=== PATIENT | female | born 1990 | race Caucasian/White ===

== ENCOUNTER 2019-06-12 11:07 | Emergency (ER) | payer OTHER ==
[2019-06-12 11:30] VITALS: RESP 18
[2019-06-12] MEDS ORDERED: IBUPROFEN 600 MG TAB PO STA (11:40)
[2019-06-12 12:02] LABS: Appearance,Urine Turbid (Clear); Bacteria,Urine Few /hpf; Bilirubin,Urine Negative (Negative); Blood,Urine Small (Negative); Color,Urine Yellow; Glucose,Urine (UA) Negative (Negative); Ketones,Urine 3+ (Negative); Leukocyte Esterase,Urine Large (Negative); Mucus,Urine Occasional /hpf; Nitrite,Urine Positive (Negative); PH, Urine 5.5 (5.0-8.0); Protein,Urine 1+ (Negative); RBC,Urine 12 /hpf (0-5); Specific Gravity,Urine 1.013 (1.001-1.035); Squamous Epithelial Cell,Urine 7 /hpf (0-4); Urobilinogen,Urine <2.0 mg/dL (<2.0)
[2019-06-12] MEDS: SODIUM CHLORIDE 0.9% 500 ML 500 ML IV SCH ×2 (12:06→13:57)
[2019-06-12] MEDS ORDERED: ACETAMINOPHEN TAB 325 MG TAB PO STA (12:06)
[2019-06-12 12:48] LABS: ALT 22 U/L (9-52); AST 17 U/L (14-36); African American GFR (CKD) >90 (>60 ml/min/1.73 sqM); Albumin 3.8 g/dL (3.5-5.0); Alkaline Phosphatase 53 U/L (38-126); Anion Gap 11 mmol/L; Blood Urea Nitrogen 4 mg/dL (7-17); Calcium 9.1 mg/dL (8.4-10.2); Carbon Dioxide 22 mmol/L (22-30); Chloride 104 mmol/L (98-107); Glucose 108 mg/dL (74-99); Potassium 3.4 mmol/L (3.5-5.1); Sodium 137 mmol/L (137-145); Total Protein 6.5 g/dL (6.3-8.2)
[2019-06-12 12:49] LABS: Basophils % (A) 0 %; Eosinophils % (A) 0 %; HCT 30.7 % (34.0-46.0); Hypochromasia Slight; INR 0.9 (<1.2); Lymphocytes # (A) 0.6 k/uL (1.0-4.8); Lymphocytes % (A) 5 %; MCH 25.7 pg (25.0-35.0); MCHC 32.5 g/dL (31.0-37.0); MCV 79.2 fL (80.0-100.0); Mean Platelet Volume 6.2; Monocytes # (A) 1.1 k/uL (0-1.0); Monocytes % (A) 9 %; Neutrophils # (A) 10.2 k/uL (1.3-7.7); Neutrophils % (A) 84 %; Partial Thromboplastin Time 27.1 sec (22.0-30.0); Platelet Count 234 k/uL (150-450); Prothrombin Time 9.8 sec (9.0-12.0); RBC 3.88 m/uL (3.80-5.40); RDW 14.4 % (11.5-15.5); WBC 12.1 k/uL (3.8-10.6)
--- NOTE | 2019-06-12 13:14 | ED ---
Abdominal Pain HPI - General Chief Complaint: Abdominal Pain Stated Complaint: abdominal & back pain Time Seen by Provider: 06/12/19 11:30 Source: patient Mode of arrival: ambulatory Limitations: no limitations - History of Present Illness Initial Comments: The patient is a 28-year-old female with no past medical history of present to the emergency room with reported abdominal pain. States the symptoms started 4 days ago. It was first located in her left lower quadrant. States that it is now generalized to include her abdomen as well as her low back. She has been taking Motrin over the past couple of days for her pain without improvement. She denies any dysuria, hematuria or difficulty voiding. Denies any abnormal vaginal bleeding or discharge. No concern for sexually transmitted infections or . Denies unprotected intercourse. Denies any changes in her bowel habits to include diarrhea, constipation, melanotic stools or hematochezia. No history of similar in the past. She has not taken any additional medications for her symptoms. Denies fevers or chills. Does report to nausea and states she's had a poor appetite over the past several days. Denies any headaches or visual changes. No cough or chest pain. No history of IV drug use. There are no other alleviating, precipitating or modifying factors - Related Data Previous Rx's Medication Instructions Recorded Cephalexin [Keflex] 500 mg PO Q6HR #40 cap 06/12/19 Ondansetron Odt [Zofran Odt] 4 mg PO Q8HR PRN #15 tab 06/12/19 Allergies Allergy/AdvReac Type Severity Reaction Status Date / Time No Known Allergies Allergy Verified 04/29/15 04:33 Review of Systems ROS Statement: Those systems with pertinent positive or pertinent negative responses have been documented in the HPI. ROS Other: All systems not noted in ROS Statement are negative. Past Medical History Past Medical History: No Reported History History of Any Multi-Drug Resistant Organisms: None Reported Past Surgical History: Tubal Ligation Past Anesthesia/Blood Transfusion Reactions: No Reported Reaction Past Psychological History: No Psychological Hx Reported Smoking Status: Current every day smoker Past Alcohol Use History: Occasional Past Drug Use History: None Reported - Past Family History Mother Family Medical History: No Reported History General Exam Limitations: no limitations General appearance: alert, in no apparent distress Head exam: Present: atraumatic, normocephalic, normal inspection Eye exam: Present: normal appearance, PERRL, EOMI. Absent: scleral icterus, conjunctival injection, periorbital swelling ENT exam: Present: normal exam, mucous membranes moist Neck exam: Present: normal inspection. Absent: tenderness, meningismus, lymphadenopathy Respiratory exam: Present: normal lung sounds bilaterally. Absent: respiratory distress, wheezes, rales, rhonchi, stridor Cardiovascular Exam: Present: normal rhythm, tachycardia, normal heart sounds. Absent: systolic murmur, diastolic murmur, rubs, gallop, clicks GI/Abdominal exam: Present: soft, tenderness (suprapubically), normal bowel sounds. Absent: distended, guarding, rebound, rigid Extremities exam: Present: normal inspection, full ROM, normal capillary refill. Absent: tenderness, pedal edema, joint swelling, calf tenderness Back exam: Present: normal inspection Neurological exam: Present: alert, oriented X3, CN II-XII intact Psychiatric exam: Present: normal affect, normal mood Skin exam: Present: warm, dry, intact, normal color. Absent: rash Course Vital Signs 06/12/19 06/12/19 06/12/19 11:27 13:24 14:41 Temperature 102.5 F H 99.3 F 99.2 F Pulse Rate 147 H 106 H 94 Respiratory 18 18 18 Rate Blood Pressure 138/73 110/63 102/55 O2 Sat by Pulse 98 99 100 Oximetry Medical Decision Making - Medical Decision Making Upon arrival the patient was placed into room 26. A thorough history and physical exam was performed. Vitals are obtained and the patient does have 102.5 fever. She also has a heart rate of 147. As of this I did insert a peripheral IV. I gave her 2 L bolus of normal saline. She has not taken any Motrin today and therefore did provide her with 600 mg. I recommended laboratory studies and a urinalysis. I also recommended a CT of the patient's abdomen and pelvis. Laboratory studies demonstrated white blood cell count of 12.1. Hemoglobin is stable at 10. Potassium 3.4. Urinalysis shows small blood, positive nitrates, large leukocyte esterase, 12 red blood cells, greater than 182 white blood cells, many white blood cell clumps, few bacteria, occasi onal mucous. Abdomen and pelvis CT demonstrates triangular area of decreased function within right kidney upper pole which is difficult to exclude pyelonephritis. Mild hypervascularity of the uterus may reflect pelvic congestion syndrome. Follicle on the left. Failure to visualize the appendix. Because of the results I did provide the patient with a gram of Rocephin. I reevaluated her and her heart rate has greatly improved to 94. I discussed diagnosis, differential and treatment options. I did recommend hospital admission because the patient's sepsis criteria. The patient refused stating that she felt much better at this time and wanted her treated on an outpatient basis. She will be given a prescription for Keflex and Zofran. She is to follow-up with her primary care physician in the next 2-4 days for reevaluation. The patient has any new or worsening symptoms she should return to the emergency room. The patient was in agreement with the treatment plan. Father is at bedside and agreed. The patient was then discharged home in stable condition - Lab Data Result diagrams: 06/12/19 12:05 06/12/19 12:05 Lab Results 06/12/19 06/12/19 06/12/19 Range/Units 11:45 11:45 12:05 WBC 12.1 H (3.8-10.6) k/uL RBC 3.88 (3.80-5.40) m/uL Hgb 10.0 L (11.4-16.0) gm/dL Hct 30.7 L (34.0-46.0) % MCV 79.2 L (80.0-100.0) fL MCH 25.7 (25.0-35.0) pg MCHC 32.5 (31.0-37.0) g/dL RDW 14.4 (11.5-15.5) % Plt Count 234 (150-450) k/uL Neutrophils % 84 % Lymphocytes % 5 % Monocytes % 9 % Eosinophils % 0 % Basophils % 0 % Neutrophils # 10.2 H (1.3-7.7) k/uL Lymphocytes # 0.6 L (1.0-4.8) k/uL Monocytes # 1.1 H (0-1.0) k/uL Eosinophils # 0.0 (0-0.7) k/uL Basophils # 0.0 (0-0.2) k/uL Hypochromasia Slight PT (9.0-12.0) sec INR (<1.2) APTT (22.0-30.0) sec Sodium (137-145) mmol/L Potassium (3.5-5.1) mmol/L Chloride (98-107) mmol/L Carbon Dioxide (22-30) mmol/L Anion Gap mmol/L BUN (7-17) mg/dL Creatinine (0.52-1.04) mg/dL Est GFR (CKD-EPI)AfAm (>60 ml/min/1.73 sqM) Est GFR (CKD-EPI)NonAf (>60 ml/min/1.73 sqM) Glucose (74-99) mg/dL Plasma Lactic Acid Ji (0.7-2.0) mmol/L Calcium (8.4-10.2) mg/dL Total Bilirubin (0.2-1.3) mg/dL AST (14-36) U/L ALT (9-52) U/L Alkaline Phosphatase (38-126) U/L Total Protein (6.3-8.2) g/dL Albumin (3.5-5.0) g/dL Urine Color Yellow Urine Appearance Turbid H (Clear) Urine pH 5.5 (5.0-8.0) Ur Specific [employer] 1.013 (1.001-1.035) Urine Protein 1+ H (Negative) Urine Glucose (UA) Negative (Negative) Urine Ketones 3+ H (Negative) Urine Blood Small H (Negative) Urine Nitrite Positive H (Negative) Urine Bilirubin Negative (Negative) Urine Urobilinogen <2.0 (<2.0) mg/dL Ur Leukocyte Esterase Large H (Negative) Urine RBC 12 H (0-5) /hpf Urine WBC >182 H (0-5) /hpf Urine WBC Clumps Many H (None) /hpf Ur Squamous Epith Cells 7 H (0-4) /hpf Urine Bacteria Few H (None) /hpf Urine Mucus Occasional H (None) /hpf Urine HCG, Qual Not Detected (Not Detectd) 06/12/19 06/12/19 06/12/19 Range/Units 12:05 12:05 12:05 WBC (3.8-10.6) k/uL RBC (3.80-5.40) m/uL Hgb (11.4-16.0) gm/dL Hct (34.0-46.0) % MCV (80.0-100.0) fL MCH (25.0-35.0) pg MCHC (31.0-37.0) g/dL RDW (11.5-15.5) % Plt Count (150-450) k/uL Neutrophils % % Lymphocytes % % Monocytes % % Eosinophils % % Basophils % % Neutrophils # (1.3-7.7) k/uL Lymphocytes # (1.0-4.8) k/uL Monocytes # (0-1.0) k/uL Eosinophils # (0-0.7) k/uL Basophils # (0-0.2) k/uL Hypochromasia PT 9.8 (9.0-12.0) sec INR 0.9 (<1.2) APTT 27.1 (22.0-30.0) sec Sodium 137 (137-145) mmol/L Potassium 3.4 L (3.5-5.1) mmol/L Chloride 104 (98-107) mmol/L Carbon Dioxide 22 (22-30) mmol/L Anion Gap 11 mmol/L BUN 4 L (7-17) mg/dL Creatinine 0.75 (0.52-1.04) mg/dL Est GFR (CKD-EPI)AfAm >90 (>60 ml/min/1.73 sqM) Est GFR (CKD-EPI)NonAf >90 (>60 ml/min/1.73 sqM) Glucose 108 H (74-99) mg/dL Plasma Lactic Acid Ji 1.0 (0.7-2.0) mmol/L Calcium 9.1 (8.4-10.2) mg/dL Total Bilirubin 1.0 (0.2-1.3) mg/dL AST 17 (14-36) U/L ALT 22 (9-52) U/L Alkaline Phosphatase 53 (38-126) U/L Total Protein 6.5 (6.3-8.2) g/dL Albumin 3.8 (3.5-5.0) g/dL Urine Color Urine Appearance (Clear) Urine pH (5.0-8.0) Ur Specific [employer] (1.001-1.035) Urine Protein (Negative) Urine Glucose (UA) (Negative) Urine Ketones (Negative) Urine Blood (Negative) Urine Nitrite (Negative) Urine Bilirubin (Negative) Urine Urobilinogen (<2.0) mg/dL Ur Leukocyte Esterase (Negative) Urine RBC (0-5) /hpf Urine WBC (0-5) /hpf Urine WBC Clumps (None) /hpf Ur Squamous Epith Cells (0-4) /hpf Urine Bacteria (None) /hpf Urine Mucus (None) /hpf Urine HCG, Qual (Not Detectd) - EKG Data EKG Comments: EKG demonstrates a sinus tachycardia with a ventricular rate of 118. IA interval is 116. QRS 80. QTC 434. No acute ST segment elevations or depressions concerning for ischemic changes. No signs of Toumu-Zzhwkhxkn-Onxea or Brugada syndrome Disposition Clinical Impression: Pyelonephritis, SIRS (systemic inflammatory response syndrome) Disposition: HOME SELF-CARE Condition: Serious Instructions (If sedation given, give patient instructions): Kidney Infection (ED) Additional Instructions: Please follow up with your primary care doctor in 2-4 days. I did recommend hospital admission. Return to the emergency department for any new or worsening symptoms Prescriptions: Cephalexin [Keflex] 500 mg PO Q6HR #40 cap Ondansetron Odt [Zofran Odt] 4 mg PO Q8HR PRN #15 tab PRN Reason: Nausea Is patient prescribed a controlled substance at d/c from ED?: No Referrals: None,Stated [Primary Care Provider] - 1-2 days Lis Daniel MD [STAFF PHYSICIAN] - 1-2 days Time of Disposition: 14:14
--- NOTE | 2019-06-12 13:17 | CT ---
EXAMINATION TYPE: CT abdomen pelvis w con DATE OF EXAM: 06/12/2019 REFERENCE: NONE HISTORY: abd pain, sepsis HISTORY: Left sided Abdominal and back pain with fever. REFERENCE: NONE CT DLP: 553.3 mGy Automated exposure control for dose reduction was used. TECHNIQUE: Helical acquisition through the abdomen and pelvis was obtained following the oral ingesti on of without Oral Contrast and following intravenous administration of 100 mL of Isovue 300. The vincent a was reformatted in axial, coronal and sagittal projections. FINDINGS: Visualized portions of the lungs are clear. There is no pleural or pericardial fluid. The heart is not enlarged. Within the abdomen, the liver, spleen and gallbladder are normal. Both adrenal glands are normal. The triangular area of decreased function in the upper pole of the right kidney. I would BE unable to exclude pyelonephritis in this area. Limited views of the pancreas are normal. There is no significant retroperitoneal, inguinal or iliac adenopathy. The bladder is normal. The uterus is mildly hypervascular. There appears to been a previous tubal ligation. There is follicu lar change present in both ovaries with a 2.6 cm follicle present on the left. The bowel is difficult to follow due to a possibility of retroperitoneal fat. The appendix is not vis ualized. Small bowel loops are within normal limits. There is a small amount of free fluid within the pelvis. No free air is seen. IMPRESSION: 1. TRIANGULAR AREA OF DECREASED FUNCTION WITHIN RIGHT KIDNEY IN THE UPPER POLE. LV DIFFICULT TO EXCLU DE PYELONEPHRITIS. 2. MILD HYPERVASCULARITY OF THE UTERUS MAY REFLECT PELVIC CONGESTION SYNDROME. 3. DOMINANT FOLLICLE ON THE LEFT MEASURING 2.6 CM. 4. FAILURE TO VISUALIZE THE APPENDIX.
[2019-06-12] MEDS ORDERED: cefTRIAXone IN SWFI 1,000 MG/10 ML SYRINGE IVP STA (13:37)
[2019-06-12] MEDS ORDERED: ONDANSETRON 4 MG/2 ML VIAL IVP STA (14:12)
[2019-06-12 14:42] VITALS: BP 102/55; PULSE 94; TEMP 99.2
== END 2019-06-12 14:41 | disposition home or self-care (01) ==
LOC: EC 11:07
DX: N12 Tubulo-interstitial nephritis, not specified as acute or chronic (principal); R65.10 Systemic inflammatory response syndrome (SIRS) of non-infectious origin without acute organ dysfunction; F17.200 Nicotine dependence, unspecified, uncomplicated
CPT/HCPCS: 36415; 93005; 80053; 83605; 85025; 85610; 85730; 81001; 81025; 87040; 87086; 87077; 87186; 74177; 99284; 96374; 96375; J2405; J0696; Q9967

== ENCOUNTER 2025-01-26 19:58 | Inpatient (IN) | payer OTHER ==
[2025-01-26 20:42] LABS: Amphetamine Screen,Urine Not Detected (NotDetected); Barbiturate Screen,Urine Not Detected (NotDetected); Benzodiazepines Screen,Urine Not Detected (NotDetected); Cocaine Screen,Urine Detected (NotDetected); Methadone Screen, Urine Not Detected (NotDetected); Opiate Screen,Urine Not Detected (NotDetected); Oxycodone Screen, Urine Not Detected (NotDetected); Phencyclidine Screen,Urine Not Detected (NotDetected); Tricyclic Antidepressant,Urine Not Detected (NotDetected); Urn Cannabinoid Scrn Not Detected (NotDetected)
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
[2025-01-27] MEDS ORDERED: OLANZapine 10 MG VIAL IM PRN (03:50)
[2025-01-27] MEDS ORDERED: MAGNESIUM HYDROXIDE 2,400 MG/30 ML CUP PO PRN (03:50)
[2025-01-27] MEDS ORDERED: ACETAMINOPHEN TAB 325 MG TAB PO PRN (03:50)
[2025-01-27] MEDS ORDERED: hydrOXYzine HCL 50 MG/ML 1 ML VIAL IM PRN (03:50)
[2025-01-27] MEDS ORDERED: IBUPROFEN 600 MG TAB PO PRN (03:50)
[2025-01-27] MEDS ORDERED: OLANZapine 5 MG TAB PO PRN (03:50)
[2025-01-27] MEDS ORDERED: hydrOXYzine HCL 25 MG TAB PO PRN (03:50)
[2025-01-27] MEDS ORDERED: MAG HYDROX/AL HYDROX/SIMETH 355 ML BOTTLE PO PRN (03:50)
[2025-01-27 06:31] LABS: Appearance,Urine Clear (Clear); Bilirubin,Urine Negative (Negative); Blood,Urine Negative (Negative); Color,Urine Colorless; Glucose,Urine (UA) Negative (Negative); Ketones,Urine Negative (Negative); Leukocyte Esterase,Urine Negative (Negative); Nitrite,Urine Negative (Negative); PH, Urine 6.5 (5.0-8.0); Protein,Urine Negative (Negative); Specific Gravity,Urine 1.007 (1.001-1.035); Urobilinogen,Urine <2.0 mg/dL (<2.0)
[2025-01-27] MEDS: NICOTINE 14MG/24HR PATCH TRANSDERM SCH (08:51)
[2025-01-27] MEDS: buPROPion XL 150 MG TAB.ER.24H PO SCH (08:51)
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
[2025-01-28 08:49] LABS: Basophils # (A) 0.05 10*3/uL (0.00-0.10); Basophils % (A) 0.7 %; Eosinophils # (A) 0.26 10*3/uL (0.04-0.35); Eosinophils % (A) 3.7 %; HCT 33.9 % (37.2-46.3); HGB 10.6 g/dL (12.0-15.0); Lymphocytes # (A) 1.91 10*3/uL (0.90-5.00); Lymphocytes % (A) 27.2 %; MCH 24.5 pg (27.0-32.0); MCHC 31.3 g/dL (32.0-37.0); MCV 78.5 fL (80.0-97.0); Mean Platelet Volume 9.9 fL (9.5-12.2); Monocytes # (A) 0.76 10*3/uL (0.20-1.00); Monocytes % (A) 10.8 %; Neutrophils # (A) 4.03 10*3/uL (1.80-7.70); Neutrophils % (A) 57.3 %; Platelet Count 348 10*3/uL (140-440); RBC 4.32 10*6/uL (4.10-5.20); RDW 17.6 % (11.5-14.5); WBC 7.03 10*3/uL (4.50-10.00)
[2025-01-28 09:09] LABS: ALT 12 U/L (4-34); AST 19 U/L (14-36); African American GFR (CKD) >90 (>60 ml/min/1.73 sqM); Albumin 4.4 g/dL (3.5-5.0); Alkaline Phosphatase 69 U/L (38-126); Anion Gap 11 mmol/L; Bilirubin, Delta 0.1 mg/dL (0.0-0.2); Bilirubin,Unconjugated 0.4 mg/dL (0.0-1.1); Blood Urea Nitrogen 10 mg/dL (7-17); Calcium 9.7 mg/dL (8.4-10.2); Carbon Dioxide 23 mmol/L (22-30); Chloride 104 mmol/L (98-107); Glucose 124 mg/dL (74-99); Non-African American GFR(CKD) >90 (>60 ml/min/1.73 sqM); Sodium 138 mmol/L (137-145); Total Bilirubin 0.5 mg/dL (0.2-1.3)
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
[2025-01-28 13:27] LABS: Chol/HDL Ratio 2.12 Ratio; LDL Cholesterol,Calculated 65.1 mg/dL (0.0-131.0); VLDL Calculation 18.78 mg/dL (5.00-40.00)
--- NOTE | 2025-01-29 08:41 | P.PN ---
Progress Note - Text Progress Note Date: 01/29/25 Chief complaint: Suicidal thoughts Interval History: Patient was seen wandering the hallways and was directable and agreeable to speak with health underwriter in the office. Patient notes that she is doing "good". She does note that she is having weird dreams that she associates with the Wellbutrin. She notes that she is able to tolerate this. She denies any suicidal ideations. She notes that her depression is 1/10 and her anxiety 0/10 with 10 being worse (previous depression 4/0, anxiety 2/0). She denies any problems with her sleep, energy, appetite and concentration. She plans to go stay with her father upon discharge. She is trying to get established with Medicaid. We discussed [facility] again which she is in favor of because she wants counseling. Mental Status Exam: General Appearance: Patient appears to be stated age is alert, directable, and cooperative. Behavior: Patient is calmly seated without any agitated behavior. Speech: Patient's speech is fluent and nonpressured. Mood/Affect: Mood is improving mildly, affect is congruent and constricted. Suicidality/Homicidality: Patient denies having any suicidal or homicidal ideation intent or plan. Perceptions: Patient denies any visual hallucinations and denies any auditory hallucinations Though content/process: There is no evidence of any delusional thought content and thought process is linear and goal-directed. Memory and concentration: AOX3, grossly intact for the purposes of this session Judgment and insight: Improving mildly Diagnoses: Major depressive disorder recurrent severe Alcohol use disorder Cocaine use disorder Tobacco use disorder R/O Personality disorder Assessment: The patient is doing well and it is felt that she can be discharged either on Thursday or Thursday once mental health services are set up for her including counseling. PLAN: -Patient is admitted under voluntary status to MHU for stabilization of psychiatric symptoms and safety. Patient has signed adult voluntary form and medication consent and is placed in patient's chart. -Medications : Continue Wellbutrin XL 150 mg give 1 tablet by mouth once daily for depression. The patient has been explained the risk and benefits. -Ativan and Zyprexa PRN for agitation/aggression -Patient was informed of the risks, benefits and side effects of the medication and patient verbally consented to taking the medications. Patient signed med consent form and was placed in chart. -Internal Medicine consult to perform medical evaluation and physical. -NRT -nicotine patch -SW on board for discharge planning. Encourage patient to participate in groups to work on coping skills.
--- NOTE | 2025-01-29 15:21 | P.MDCNMH ---
History of Present Illness H&P Date: 01/29/25 Chief Complaint: Medical management 35-year-old woman, former smoker, present vapor presented for mental health evaluation. Medicine was consulted for medical management. Patient has no complaints at this time and denies taking any chronic medications for chronic medical diseases. Review of systems is largely negative Gen: in no apparent distress, resting comfortably in bed Eyes: PERRL, no scleral injection or icterus HENT: normocephalic, atraumatic, good hearing acuity, moist mucous membranes Neck: no tracheal deviation, full range of motion Resp: good air exchange, breathing comfortably with no accessory muscle use, no tactile fremitus CVS: good distal perfusion x 4, no pitting edema GI: soft, NTTP, ND, no hepatosplenomegaly : no suprapubic tenderness, no CVAT, gardner catheter not present MSK: no clubbing, no cyanosis, no noted contractures of extremities Skin: no noted rashes, petechiae; temperature of skin is appropriate Neuro: moving all extremities without signs of weakness, CN II-XII intact Psych: cooperative, euthymic mood, insight and judgment intact Assessment/plan: Nicotine use, via vape -Cessation counseling advised - NRT on request Thank you for this consult, please reach out with any questions or concerns. Past Medical History Past Medical History: No Reported History History of Any Multi-Drug Resistant Organisms: None Reported Past Surgical History: Tubal Ligation Additional Past Surgical History / Comment(s): Tubal Ligation-2014 Past Anesthesia/Blood Transfusion Reactions: No Reported Reaction Past Psychological History: No Psychological Hx Reported, Depression Smoking Status: Former smoker, Vaper Past Alcohol Use History: Occasional Past Drug Use History: None Reported - Past Family History Mother Family Medical History: No Reported History Medications and Allergies Home Medications Medication Instructions Recorded Confirmed Type No Known Home Medications 01/26/25 01/26/25 History Allergies Allergy/AdvReac Type Severity Reaction Status Date / Time No Known Allergies Allergy Verified 01/26/25 20:45 Physical Exam Osteopathic Statement: *. No significant issues noted on an osteopathic str uctural exam other than those noted in the History and Physical/Consult. Vitals: Vital Signs Pulse Resp BP Pulse Ox 01/29/25 09:00 110 H 16 95/67 98 Cranial Nerve Examination - Cranial Nerves Cranial Nerve II- Optic: Intact Cranial Nerve III- Oculomotor: Intact Cranial Nerve IV- Trochlear: Intact Cranial Nerve V- Trigeminal: Intact Cranial Nerve - Abducens: Intact Cranial Nerve VII- Facial: Intact Cranial Nerve VIII- Auditory: Intact Cranial Nerve IX- Glossopharyngeal: Intact Cranial Nerve X- Vagus: Intact Cranial Nerve XI- Accessory: Intact Cranial Nerve XII- Hypoglossal: Intact Results CBC & Chem 7: 01/28/25 08:05 01/28/25 08:05
--- NOTE | 2025-01-30 11:06 | P.PN ---
Progress Note - Text Progress Note Date: 01/30/25 Chief complaint: Suicidal thoughts Interval History: Patient was seen wandering the hallways and was directable and agreeable to speak with expert medical writer in the office. The patient notes that she continues to improve. She notes that she spoke to her 14-year-old daughter in regards there are some stress and she plans to take all 3 of her kids into counseling. She denies any suicidal thoughts or urges to cut. She continues to express that her depression is 1/10 and her anxiety is 0/10 with 10 being worse. She notes no problems falling asleep or staying asleep. She feels that her overall energy is good. She denies any problems with appetite or overall concentration. She denies any side effects with the current medications. Mental Status Exam: General Appearance: Patient appears to be stated age is alert, directable, and cooperative. Behavior: Patient is calmly seated without any agitated behavior. Speech: Patient's speech is fluent and nonpressured. Mood/Affect: Mood is improving mildly, affect is congruent and constricted. Suicidality/Homicidality: Patient denies having any suicidal or homicidal ideation intent or plan. Perceptions: Patient denies any visual hallucinations and denies any auditory hallucinations Though content/process: There is no evidence of any delusional thought content and thought process is linear and goal-directed. Memory and concentration: AOX3, grossly intact for the purposes of this session Judgment and insight: Improving mildly Diagnoses: Major depressive disorder recurrent severe Alcohol use disorder Cocaine use disorder Tobacco use disorder R/O Personality disorder Assessment: Services are not currently connected it is felt that the chances of relapse are high if the patient leaves without services. At this time we will complete stabilization more likely discharge tomorrow. PLAN: -Patient is admitted under voluntary status to MHU for stabilization of psychiatric symptoms and safety. Patient has signed adult voluntary form and medication consent and is placed in patient's chart. -Medications : Continue Wellbutrin XL 150 mg give 1 tablet by mouth once daily for depression. The patient has been explained the risk and benefits. -Ativan and Zyprexa PRN for agitation/aggression -Patient was informed of the risks, benefits and side effects of the medication and patient verbally consented to taking the medications. Patient signed med consent form and was placed in chart. -Internal Medicine consult to perform medical evaluation and physical. -NRT -nicotine patch -SW on board for discharge planning. Encourage patient to participate in groups to work on coping skills.
--- NOTE | 2025-01-31 08:07 | P.DS ---
Providers Date of admission: 01/27/25 03:45 Expected date of discharge: 01/31/25 Attending physician: Kin Davison MD Consults: 01/27/25 03:50 Consult Physician Routine Consulting Provider: Newton Wynn Consult Reason/Comments: Med H&P Do you want consulting provider notified?: Yes Primary care physician: Stated None - Discharge Diagnosis(es) (1) Major depressive disorder, recurrent episode, severe Current Visit: Yes Status: Acute Priority: High (2) Alcohol use disorder Current Visit: Yes Status: Acute Priority: Medium (3) Cocaine use disorder Current Visit: Yes Status: Acute Priority: High (4) Nicotine dependence Current Visit: Yes Status: Acute Priority: Low Hospital Course: Admission HPI: Admission note was completed by Dr Posada "patient is a 35-year-old female mother of 3 currently living with her father and unemployed. Patient presented to the hospital due to suicidal thoughts. Upon admission the patient's UDS was positive for cocaine. The patient notes that she gets suicidal and she drinks and notes that recently she drank half a pint of alcohol. She notes that this is not a daily habit and she does admit roughly once a week. She notes with the cocaine she used 2 days ago. She notes that her suicidal thoughts are distressing and she contacted her daughter but cannot remember which she said to her. Her daughter called the police and EMS brought her to the hospital. She notes currently she has no plan or intent. She notes that she suffers from long-term depression and averages out around 5/10 with 10 being worse. She notes that she has anxiety and rates it 5/10 and notes that her symptoms include feeling overwhelmed. On average she is getting good night sleep but she feels fatigued through the day. She notes that her appetite and concentration are baseline. She denies feelings of helplessness, hopelessness or worthlessness. She notes that she was crying last night when she was drinking. She notes that she has guilt. Currently she denies any suicidal thoughts or homicidal thoughts. She notes that her father has firearms in the house but keeps them locked." Hospital course: Upon admission to the unit patient was directable and agreeable to commence treatment and signed adult voluntary form. Patient was initially depressed however with time and treatment patient got along well with other patients on the unit and followed unit protocol. Patient was compliant with the medications and denied any side effects throughout hospital course. Patient was started on Wellbutrin XL 150 mg daily for depression. Patient spoke of her stressors and engaged in therapy both group/activity therapy. Patient was also seen by medical team for history and physical exam. Throughout the course of the hospitalization patient gradually improved with regards to mood, anxiety, sleep and returned back to their baseline level of functioning. On the day of discharge patient denied any suicidal or homicidal ideations intent or plan denied any auditory or visual hallucinations. Patient endorsed wanting to live for their health and family. The patient denied any access to guns or weapons. Patient denied any paranoia and did not endorse any delusions. Patient does have a significant history of substance abuse and was counseled on abstaining from all substances including alcohol and marijuana. Patient was offered h owever declined inpatient substance-abuse rehab. Patient elected to do outpatient substance use treatment program through their outpatient provider. Patient was also counseled on the medications and need for regular compliance and was encouraged to follow-up with their outpatient appointment for mental health and also for primary care. Prior to discharge a family meeting will be arranged by social problems specialist to answer any questions and ensure safety upon discharge incuding making sure that guns/weapons are either removed from the home or locked away. Mental status exam: General Appearance: Patient appears to be thin, stated age is alert, pleasant, and cooperative. Patient is in no acute distress and has improved hygiene and grooming Behavior: Patient is calmly seated without any agitated behavior. Speech: Patient's speech is fluent and nonpressured. Mood/Affect: Patient reports their mood is "good", affect is congruent and euthymic. Suicidality/Homicidality: Patient denies having any suicidal or homicidal ideation intent or plan. Perceptions: Patient denies any auditory or visual hallucinations. Though content/process: There is no evidence of any delusional thought content and thought process is linear and goal-directed. More future oriented Memory and concentration: AOX3, grossly intact for the purposes of this session. Can spell "WORLD" backwards correctly. Judgment and insight: improved with guarded prognosis Impression: Major depressive disorder severe episode Alcohol use disorder Cocaine use disorder Nicotine dependence Plan: -Continue with discharge today as patient has improved and stabilized psychiatrically and is not currently an imminent threat to themself and/or others. -Continue medications: Wellbutrin XL 150 mg daily for mood -Patient was counseled on the need for medication compliance and appropriate follow-up at mental health and also primary care for medical issues. Patient verbalized understanding and agreed. -Social work to help coordinate patients discharge today. also to ensure safe home environment that guns/weapons are either removed from the home or locked away. Social work also to arrange for patients follow up appointments for psychiatric care along with follow up with primary care provider. -Patient counseled on abstaining from recreational drugs and marijuana and alcohol. Was informed/educated on the adverse effects on their physical and mental health. Patient verbally agreed and understood. Patient was offered substance abuse treatment however declined at this time. -Patient was instructed to return to the hospital or seek immediate medical care if their psychiatric or medical symptoms do worsen or reoccur. Allergies Allergy/AdvReac Type Severity Reaction Status Date / Time No Known Allergies Allergy Verified 01/26/25 20:45 Laboratory Results WBC 7.03 10*3/uL (4.50-10.00) 01/28/25 08:05 RBC 4.32 10*6/uL (4.10-5.20) 01/28/25 08:05 Hgb 10.6 g/dL (12.0-15.0) L 01/28/25 08:05 Hct 33.9 % (37.2-46.3) L 01/28/25 08:05 MCV 78.5 fL (80.0-97.0) L 01/28/25 08:05 MCH 24.5 pg (27.0-32.0) L 01/28/25 08:05 MCHC 31.3 g/dL (32.0-37.0) L 01/28/25 08:05 Plt Count 348 10*3/uL (140-440) 01/28/25 08:05 MPV 9.9 fL (9.5-12.2) 01/28/25 08:05 Immature Gran % (Auto) 0.3 % 01/28/25 08:05 Neutrophils % 57.3 % 01/28/25 08:05 Lymphocytes % 27.2 % 01/28/25 08:05 Monocytes % 10.8 % 01/28/25 08:05 Eosinophils % 3.7 % 01/28/25 08:05 Basophils % 0.7 % 01/28/25 08:05 Immature Gran # 0.02 10*3/uL (0.00-0.04) 01/28/25 08:05 Neutrophils # 4.03 10*3/uL (1.80-7.70) 01/28/25 08:05 Lymphocytes # 1.91 10*3/uL (0.90-5.00) 01/28/25 08:05 Monocytes # 0.76 10*3/uL (0.20-1.00) 01/28/25 08:05 Eosinophils # 0.26 10*3/uL (0.04-0.35) 01/28/25 08:05 Basophils # 0.05 10*3/uL (0.00-0.10) 01/28/25 08:05 Sodium 138 mmol/L (137-145) 01/28/25 08:05 Potassium 4.0 mmol/L (3.5-5.1) 01/28/25 08:05 Chloride 104 mmol/L (98-107) 01/28/25 08:05 Carbon Dioxide 23 mmol/L (22-30) 01/28/25 08:05 Anion Gap 11 mmol/L 01/28/25 08:05 BUN 10 mg/dL (7-17) 01/28/25 08:05 Creatinine 0.66 mg/dL (0.52-1.04) 01/28/25 08:05 Est GFR (CKD-EPI)AfAm >90 (>60 ml/min/1.73 sqM) 01/28/25 08:05 Est GFR (CKD-EPI)NonAf >90 (>60 ml/min/1.73 sqM) 01/28/25 08:05 Glucose 124 mg/dL (74-99) H 01/28/25 08:[address] Glu mg/dL 100 mg/dL 01/28/25 08:05 Hemoglobin A1c 5.1 % (<=6.0) 01/28/25 08:05 Calcium 9.7 mg/dL (8.4-10.2) 01/28/25 08:05 Total Bilirubin 0.5 mg/dL (0.2-1.3) 01/28/25 08:05 Conjugated Bilirubin 0.0 mg/dL (0.0-0.3) 01/28/25 08:05 Unconjugated Bilirubin 0.4 mg/dL (0.0-1.1) 01/28/25 08:05 Delta Bilirubin 0.1 mg/dL (0.0-0.2) 01/28/25 08:05 AST 19 U/L (14-36) 01/28/25 08:05 ALT 12 U/L (4-34) 01/28/25 08:05 Alkaline Phosphatase 69 U/L (38-126) 01/28/25 08:05 Total Protein 7.0 g/dL (6.3-8.2) 01/28/25 08:05 Albumin 4.4 g/dL (3.5-5.0) 01/28/25 08:05 Triglycerides 93.90 mg/dL (0.00-149.00) 01/28/25 08:05 Cholesterol 159.00 mg/dL (0.00-200.00) 01/28/25 08:05 LDL Cholesterol, Calc 65.1 mg/dL (0.0-131.0) 01/28/25 08:05 VLDL Cholesterol, Calc 18.78 mg/dL (5.00-40.00) 01/28/25 08:05 HDL Cholesterol 75.10 mg/dL (40.00-60.00) H 01/28/25 08:05 Cholesterol/HDL Ratio 2.12 Ratio 01/28/25 08:05 TSH 3.750 mIU/L (0.465-4.680) 01/28/25 08:05 Urine Color Colorless 01/27/25 05:00 Urine Appearance Clear (Clear) 01/27/25 05:00 Urine pH 6.5 (5.0-8.0) 01/27/25 05:00 Ur Specific [place] 1.007 (1.001-1.035) 01/27/25 05:00 Urine Protein Negative (Negative) 01/27/25 05:00 Urine Glucose (UA) Negative (Negative) 01/27/25 05:00 Urine Ketones Negative (Negative) 01/27/25 05:00 Urine Blood Negative (Negative) 01/27/25 05:00 Urine Nitrite Negative (Negative) 01/27/25 05:00 Urine Bilirubin Negative (Negative) 01/27/25 05:00 Urine Urobilinogen <2.0 mg/dL (<2.0) 01/27/25 05:00 Ur Leukocyte Esterase Negative (Negative) 01/27/25 05:00 Urine HCG, Qual Not Detected (Not Detectd) 01/27/25 05:00 Urine Opiates Screen Not Detected (NotDetected) 01/26/25 20:16 Ur Oxycodone Screen Not Detected (NotDetected) 01/26/25 20:16 Urine Methadone Screen Not Detected (NotDetected) 01/26/25 20:16 Ur Barbiturates Screen Not Detected (NotDetected) 01/26/25 20:16 U Tricyclic Antidepress Not Detected (NotDetected) 01/26/25 20:16 Ur Phencyclidine Scrn Not Detected (NotDetected) 01/26/25 20:16 Ur Amphetamines Screen Not Detected (NotDetected) 01/26/25 20:16 U Methamphetamines Scrn Not Detected (NotDetected) 01/26/25 20:16 U Benzodiazepines Scrn Not Detected (NotDetected) 01/26/25 20:16 Urine Cocaine Screen Detected (NotDetected) H 01/26/25 20:16 U Marijuana (THC) Screen Not Detected (NotDetected) 01/26/25 20:16 SARS-CoV-2 (PCR) Not Detected (Not Detectd) 01/27/25 01:54 Vital Signs Temp 98.7 F 01/30/25 21:59 Pulse 114 H 01/30/25 21:59 Resp 18 01/30/25 21:59 BP 117/77 01/30/25 21:59 Pulse Ox 99 01/30/25 21:59 FiO2 Patient Condition at Discharge: Stable Plan - Discharge Summary Discharge Rx Participant: No New Discharge Prescriptions: New buPROPion XL [Wellbutrin XL] 150 mg PO DAILY 30 Days #30 tab Nicotine 14Mg/24Hr Patch [Habitrol] 1 patch TRANSDERM DAILY 14 Days #14 patch Discharge Medication List Nicotine 14Mg/24Hr Patch [Habitrol] 1 patch TRANSDERM DAILY 14 Days #14 patch 01/31/25 [Rx] buPROPion XL [Wellbutrin XL] 150 mg PO DAILY 30 Days #30 tab 01/31/25 [Rx] Follow up Appointment(s)/Referral(s): None,Stated [Primary Care Provider] - 1-2 days Activity/Diet/Wound Care/Special Instructions: Avoid the use of street drugs and alcohol. Take all medications as prescribed. When you are in need of refills on your medications, please contact your medical provider and/or outpatient psychiatrist/provider to have this done. Please go to your scheduled outpatient appointment for aftercare treatment. If symptoms return or become worse, call the crisis line at and/or go to the nearest emergency room for evaluation. National Suicide Hotline [address] [facility] confidentiality statement: "The information contained in this communication, including attachments, is confidential, may be privileged, and is intended only for the use of the named recipient(s). Unauthorized use, disclosure, forwarding or copying is strictly prohibited and may be unlawful. If you have received this communication in error, please notify me IMMEDIATELY at the phone number or pager listed above. Discharge Disposition: HOME SELF-CARE
[2025-01-31] MEDS: NICOTINE GUM (POLACRILEX) 2 MG GUM BUCCAL PRN (08:29)
[2025-01-31 08:43] VITALS: BP 109/66; PULSE 117; RESP 20; TEMP 97.9
== END 2025-01-31 16:11 | disposition home or self-care (01) | DRG 885 ==
LOC: EC 19:58 → 3MHU 01-27 03:45
PROVIDERS: ADMIT Psychiatry & Neurology Psychiatry; ATTEND Psychiatry & Neurology Psychiatry
DX: F33.2 Major depressive disorder, recurrent severe without psychotic features (principal); R45.851 Suicidal ideations; F14.10 Cocaine abuse, uncomplicated; F10.10 Alcohol abuse, uncomplicated; F41.9 Anxiety disorder, unspecified; F17.290 Nicotine dependence, other tobacco product, uncomplicated; Z56.0 Unemployment, unspecified; Z91.410 Personal history of adult physical and sexual abuse; Z91.51 Personal history of suicidal behavior; Z79.899 Other long term (current) drug therapy
CPT/HCPCS: 80053; 80061; 80306; 81003; 81025; 82075; 82248; 83036; 84443; 85025; 87635; 99285